=== PATIENT | female | born 1940 | race Caucasian/White ===

== ENCOUNTER → 2019-04-11 11:01 | Outpatient (CLI) | payer MEDICARE, OTHER ==
[~2019-04-11 11:01] MED LIST: ACETAMINOPHEN500 M1 PO; BAYER CHEWABLE81 MG PO; BENADRYL25 MG PO; ELIQUIS5 MG PO; HYDROCODON-ACE1 EA10 PO; MERIBIN5 MG PO; POTASSIUM99 M1 PO; VITAMIN B-12100 MCG PO; VITAMIN D31000 UNIT PO; VITAMIN D5000 UNIT PO
[2019-04-11 12:32] LABS: ALBUMIN 3.3 g/dL (3.4-5.0); BILIRUBIN - DIRECT 0.07 mg/dL (0.00-0.30); BILIRUBIN - INDIRECT 0.18 mg/dL (0.00-1.00); BILIRUBIN - TOTAL 0.25 mg/dL (0.2-1.3); PROTEIN - SERUM 6.9 g/dL (6.4-8.2)
[2019-04-14 10:18] VITALS: BMI 23.1
== END | disposition home or self-care (01) ==
LOC: D.US 11:00 → EDBD 11:01
PROVIDERS: ATTEND Surgery
DX: K80.70 Calculus of gallbladder and bile duct without cholecystitis without obstruction (principal)

== ENCOUNTER 2019-04-14 08:42 | Day surgery (SDC) | payer MEDICARE, OTHER ==
[~2019-04-14] VITALS: Ht 165.1 cm; Wt 63.0 kg
[~2019-04-14 08:42] MED LIST changes: -HYDROCODON-ACE1 EA10 PO; -VITAMIN B-12100 MCG PO; -VITAMIN D31000 UNIT PO
[2019-04-14 09:20] LABS: BASOPHILS 0.1 % (0-2); EOSINOPHILS 1.8 % (0-7); HEMATOCRIT 36.6 % (36.0-48.0); HEMOGLOBIN 12.2 g/dL (12-16); IMMATURE GRANULOCYTES 0.2 % (0-5); LYMPHOCYTES 23.6 % (15-50); MCH 27.7 pg (26.0-34.0); MCHC 33.3 g/dL (31.0-37.0); MCV 83.2 fL (80.0-100.0); MEAN PLATELET VOLUME 10.2 fL (7.4-10.4); MONOCYTES 12.4 % (2-11); NEUTROPHILS 61.9 % (40-80); PLATELET COUNT 225 10x3/uL (130-400); RDW 13.4 % (11.5-14.5); WBC 8.7 10x3/uL (4.8-10.8)
[2019-04-14 09:34] LABS: ANION GAP 11.6 mmol/L (8-16); CALCIUM 8.9 mg/dL (8.5-10.1); CARBON DIOXIDE 28.6 mmol/L (21.0-32.0); POTASSIUM - SERUM 4.2 mmol/L (3.5-5.1)
[2019-04-14 09:49] LABS: APTT 24.9 SECONDS (22.8-39.4); INR 0.98 (0.85-1.17); PROTIME 12.5 SECONDS (11.6-15.0)
[2019-04-14] MEDS ORDERED: VITAMIN B-12100 MCG PO (10:04)
[2019-04-14] MEDS ORDERED: ELIQUIS5 MG PO (10:04)
[2019-04-14] MEDS ORDERED: VITAMIN D31000 UNIT PO (10:05)
[2019-04-14] MEDS ORDERED: BAYER CHEWABLE81 MG PO (10:05)
[2019-04-14] MEDS ORDERED: MERIBIN5 MG PO (10:06)
[2019-04-14 10:18] VITALS: BP 131/70; Ht 165.1 cm; Wt 63.0 kg
[2019-04-14] MEDS ORDERED: HYDROCODON-ACE1 EA10 PO (12:52)
--- NOTE | 2019-04-14 14:50 | NUR ---
PATIENT AMBULATES TO BATHROOM AND VOIDS LARGE AMOUNT IN TOILET WITHOUT DIFFICULTY. AMBULATES WITHOUT DIZZINESS. PIV DC'D WITH TIP INTACT. PATIENT DRESSING IN PERSONAL CLOTHING WITH SPOUSE'S ASSISTANCE.
--- NOTE | 2019-04-14 15:06 | NUR ---
DISCHARGED HOME VIA WHEELCHAIR TO PRIVATE VEHICLE WITH SPOUSE
--- NOTE | 2019-04-28 07:19 | OP ---
PATIENT NAME: WES AGRAWAL MEDICAL RECORD: [id number] :41 LOCATION:D.OPS ADMISSION DATE: SURGEON: PRESTON VAZQUEZ MD DATE OF OPERATION: 04/14/2019 PREOPERATIVE DIAGNOSES: 1. Choledocholithiasis. 2. 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 POSTOPERATIVE DIAGNOSES: 1. Choledocholithiasis. 2. 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 PROCEDURES: 1. Laparoscopic cholecystectomy with intraoperative cholangiogram and fluoroscopic interpretation. 2. Laparoscopic lysis of adhesions. SURGEON: Preston Vazquez MD REPORT OF PROCEDURE: The patient's abdomen was prepped and draped in sterile fashion. A cutdown was made on the superior aspect of the umbilicus. Vicryls #0 were placed on the fascia bilaterally and the fascia was incised with a #15 blade. I then bluntly entered the peritoneal cavity and placed a 12-mm Alexia port. Under direct visualization, we could see there was a large amount of adhesions present in the midline and the upper abdomen. These were teased down carefully with the scope. These adhesions were generally fairly thin. We were eventually able to core out an area all the way up to the right lobe of the liver. Once we did this, we were able to place a 5-mm trocar under direct visualization, and using this, we were able to take down remainder of the adhesions in the right upper quadrant. At this point, we placed two more 5-mm trocars in the abdomen. The gallbladder was grasped and elevated. There were some adhesions present to this but no signs of acute inflammation or distention. The gallbladder was actually quite soft. The cystic artery and cystic duct were dissected free. The cystic artery was clipped proximally and distally, and ligated. The cystic duct was clipped proximally and a small opening was made within it. A Cook cholangiocath was brought through the abdominal wall and rested in the cystic duct. We then performed an intraoperative cholangiogram, which showed good flow of the contrast through the common bile duct and out through the ampulla into the duodenum. We gave the patient 5 mg of morphine. This allowed us to better visualize the remainder of the common duct system all the way up into the bilateral hepatic ducts. With doing this, we could see there was a filling defect present in the mid common bile duct, consistent with the stone that was seen on preoperative CT scan. This did not appear to be causing any form of obstruction and obviously was free floating as it was noted to be at the ampulla on the CT scan. At this point, the Cook cholangiocath was removed and the cystic duct was clipped twice distally and ligated. The gallbladder was taken off the liver bed using electrocautery and placed in the right upper quadrant. Any bleeding from the liver bed was treated with electrocautery. At this point, the ports and insufflation were then removed and the gallbladder was taken out through the umbilicus. The umbilical fascia was closed with interrupted #0 Vicryls times 3. The wounds were then irrigated out with normal saline and infused with 10 mL of 0.25% Marcaine with epinephrine. The skin incisions were all closed with subcutaneous 5-0 Monocryl and dressed appropriately. OPERATIVE REPORT [id number] WES AGRAWAL COMPLICATIONS: None. CONDITION: Stable. ANESTHESIA: General endotracheal and local. BLOOD LOSS: Minimal. TRANSINT:[id number] Voice Confirmation ID: [id number] DOCUMENT ID: [id number] PRESTON VAZQUEZ MD at 0719 CC: MAXIMO DILLARD MD [id number] DICTATION DATE: 04/14/19 1258 [facility] SERV[facility] TECHNICIAN: 04/14/19 1334 [facility] 04/14/19 [id number] [place] [address]
== END 2019-04-14 15:06 | disposition home or self-care (01) ==
LOC: D.OPS
PROVIDERS: Anesthesiology; ATTEND Surgery
DX: K80.50 Calculus of bile duct without cholangitis or cholecystitis without obstruction (principal); Z01.812 Encounter for preprocedural laboratory examination; Z95.2 Presence of prosthetic heart valve

== ENCOUNTER → 2019-08-17 12:02 | Outpatient (CLI) | payer MEDICARE, OTHER ==
[2019-04-14 10:18] VITALS: BMI 23.1
[~2019-08-17 12:02] MED LIST changes: +HYDROCODON-ACE1 EA10 PO; +VITAMIN B-12100 MCG PO; +VITAMIN D31000 UNIT PO
[2019-08-22 13:09] LABS: OVA + PARASITE EXAM Final report (())
== END | disposition home or self-care (01) ==
LOC: D.LAB 12:02
PROVIDERS: ATTEND Surgery
DX: R19.7 Diarrhea, unspecified (principal)